=== PATIENT | male | born 1980 | race Caucasian/White ===

== ENCOUNTER → 2020-07-04 | Outpatient (CLI) | payer OTHER | END | disposition home or self-care (01) | LOC: COVID19 13:23 | PROVIDERS: ATTEND Internal Medicine | DX: U07.1 COVID-19 (principal) ==

== ENCOUNTER 2024-02-01 16:45 | Emergency (ER) | payer OTHER ==
[~2024-02-01] VITALS: Ht 180.3 cm; Wt 86.2 kg
[2024-02-01] MEDS ORDERED: Tdap Vaccine 0.5 ML SYR (Adult Vaccine) IM ONE (17:10)
== END 2024-02-01 17:28 | disposition home or self-care (01) ==
LOC: ED 16:45
DX: S00.512A Abrasion of oral cavity, initial encounter (principal); Z88.8 Allergy status to other drugs, medicaments and biological substances; W45.8XXA Other foreign body or object entering through skin, initial encounter; Y93.89 Activity, other specified; Y92.009 Unspecified place in unspecified non-institutional (private) residence as the place of occurrence of the external cause; Y99.8 Other external cause status

== ENCOUNTER 2024-10-06 08:25 | Emergency (ER) | payer OTHER ==
[~2024-10-06] VITALS: Ht 180.3 cm; Wt 88.5 kg
[2024-10-06] MEDS ORDERED: SODIUM CHLORIDE 0.9% 1,000 ML IV ONE (09:00)
[2024-10-06] MEDS ORDERED: Pantoprazole Sodium 40 MG VIAL IV ONE (09:00)
[2024-10-06 09:18] LABS: BASO # 0.1 10*3/uL (0.0-0.1); BASO % 0.4 % (0.0-1.0); EOS # 0.2 10*3/uL (0.0-0.4); EOS % 2.1 % (1.0-4.0); HEMATOCRIT 35.7 % (42.0-52.0); MEAN CORPUSCULAR HGB 30.2 pg (27.0-31.0); MEAN CORPUSCULAR HGB CONC 33.9 g/dl (33.0-37.0); MEAN PLATELET VOLUME 9.9 fl (9.6-12.3); MONO # 0.6 10*3/uL (0.1-1.0); MONO % 5.3 % (3.0-9.0); NEUT # 9.4 10*3/uL (2.3-7.9); NEUT % 80.5 % (47.0-73.0); PLATELET COUNT AUTOMATED 281 10*3/uL (130-400); RED BLOOD COUNT 4.01 10*6/uL (4.50-5.90); RED CELL DISTRI WIDTH 13.2 % (0-14.5); WHITE BLOOD COUNT 11.6 10*3/uL (4.8-10.8)
[2024-10-06 09:40] LABS: ACT PARTIAL THROMBO TIME 23.2 SECONDS (20.0-32.1)
[2024-10-06 09:43] LABS: ALKALINE PHOSPHATASE 37 U/L (46-116); BUN 40 mg/dl (9-23); CHLORIDE 109 mmol/L (98-107); LIPASE 42 U/L (12-53); POTASSIUM 4.3 mmol/L (3.4-5.1); SGPT/ALT 16 U/L (5-49); TOTAL PROTEIN 5.9 gm/dL (6.0-8.0)
[2024-10-06] MEDS ORDERED: PROTONIX40 MG PO (10:45)
== END 2024-10-06 11:04 | disposition home or self-care (01) ==
LOC: ED 08:25
PROVIDERS: Internal Medicine
DX: K92.2 Gastrointestinal hemorrhage, unspecified (principal); R11.10 Vomiting, unspecified; Z88.8 Allergy status to other drugs, medicaments and biological substances